=== PATIENT | female | born 1950 | race Caucasian/White ===

== ENCOUNTER → 2023-12-15 13:30 | Outpatient (REF) | payer MEDICARE, OTHER, SELFPAY | LOC: WDC 13:30 | PROVIDERS: ATTENDING PHYSICIAN Obstetrics & Gynecology; FAMILY PHYSICIAN Nurse Practitioner Family; REFERRING PHYSICIAN Internal Medicine Rheumatology | DX: M32.10 Systemic lupus erythematosus, organ or system involvement unspecified (principal); M81.0 Age-related osteoporosis without current pathological fracture; Z12.31 Encounter for screening mammogram for malignant neoplasm of breast | CPT/HCPCS: 77063; 77067; 77080 ==